=== PATIENT | female | born 2000 ===

== ENCOUNTER 2021-06-20 19:40 | Inpatient (IN) ==
[2021-06-20 20:35] LABS: Hematocrit (blood only) 35.9 % (37-47); Hemoglobin 11.9 g/dL (12.0-16.0); Mean Corpuscular Hemoglobin 27.9 pg (25-34); Mean Corpuscular Hgb Conc 33.1 g/dL (32-36); Mean Corpuscular Volume 84.1 fL (80-100); Mean Platelet Volume 10.8 fL (7.4-10.4); Platelet Count 284 K/uL (130-400); RDW Coefficient of Variation 14.7 % (11.5-14.5); Red Blood Count 4.27 M/uL (4.2-5.4); White Blood Count 5.71 K/uL (4.8-10.8)
[2021-06-20 20:38] LABS: Appearance Urine Cloudy (Clear); Bacteria Urine Automated Negative (Negative); Bilirubin Urine Negative (Negative); Blood Urine 2+ (Negative); Color Urine Dark Yellow; Epithelial Cell Urine Auto >30 /lpf (0-5); Glucose Urine UA Negative (Negative); Ketones Urine 1+ (Negative); Leukocyte Esterase Urine Negative (Negative); Nitrite Urine Negative (Negative); Protein Urine Trace (Negative); RBC Urine Automated 0-4 /hpf (0-4); Specific Gravity Urine 1.029 (1.000-1.030); Urobilinogen Urine Negative (Negative); pH Urine 5.5 (4.5-7.5)
[2021-06-20] MEDS ORDERED: SODIUM CHLORIDE 0.9% 1000ML 1,000 ML IV ONE (20:42)
[2021-06-20 20:54] LABS: Acetaminophen < 2 ug/ml (10-30); Albumin Level 3.4 gm/dl (3.4-5.0); BUN Creatinine Ratio 11.5 (10-20); Calcium 8.4 mg/dl (8.5-10.1); Creatinine Clr Calc Pharmacy 127.1 ml/min; Est GFR (African American) 137.4 ml/min; Est GFR (Non-African American) 118.6 ml/min; Potassium 3.2 mmol/L (3.5-5.1); Salicylate < 1.7 mg/dl (2.8-20)
[2021-06-20] MEDS ORDERED: LORazepam 1 MG/2 ML VIAL IV STA (20:56)
[2021-06-20 21:03] LABS: Bilirubin,Total 0.4 mg/dl (0.2-1); Globulin 3.6 gm/dl (2.5-4.0); Thyroid Stimulating Hormone 3.21 uIu/ml (0.300-4.500)
[2021-06-20 21:10] LABS: Amphetamines+Metham, Urine Neg (Neg); Barbiturates, Urine Neg (Neg); Benzodiazepine, Urine Neg (Neg); Cocaine, Urine Neg (Neg); MDMA (Ecstacy), Urine Neg (Neg); Methadone, Urine Neg (Neg); Opiate, Urine Neg (Neg); Phencyclidine, Urine Neg (Neg)
[2021-06-20 21:23] LABS: Basophils # (auto) 0.01 K/uL (0-0.2); Basophils % (auto) 0.2 %; Eosinophils # (auto) 0.19 K/uL (0-0.5); Eosinophils % (auto) 3.3 %; Immature Granulocytes # (auto) 0.01 K/uL (0.00-0.02); Immature Granulocytes % (auto) 0.2 %; Lymphocytes # (auto) 4.04 K/uL (1.2-3.4); Lymphocytes % (auto) 70.8 %; Monocytes # (auto) 0.32 K/uL (0.11-0.59); Monocytes % (auto) 5.6 %; Neutrophils # (auto) 1.14 K/uL (1.4-6.5); Neutrophils % (auto) 19.9 %; Polychromasia 1+
--- NOTE | 2021-06-20 23:39 | Emergency Department Note ---
History of Present Illness General Chief complaint: Overdose (Intentional) Stated complaint: OVERDOSE Source: patient, RN notes reviewed and friends (At the bedside) Mode of arrival: ambulatory Limitations: no limitations History of Present Illness Provider complaint: Zyprexa overdose Maximum Pain Intensity: 8 This patient is a 20-year-old female who presents to the emergency department stating that she took "20-30" tablets of 5 mg olanzapine. Patient states this was in an attempt to "." Patient's boyfriend is at the bedside and states he picked her up to go to dinner. She admitted that she took the pills after sitting down to eat. He asked her if she wanted to go to the hospital and she said no. After they ate she began to get some abdominal cramping. She left the table and he paid the bill. Patient walked out to the parking lot and apparently fell. She has been feeling somewhat agitated and restless. There has been no vomiting. History is somewhat limited as the patient is unable to answer detailed questions due to somnolence. Past Med/Surg History Medical History (Updated 06/20/21 @ 23:54 by Vera Riley MD) Mood disorder Social History (Updated 06/20/21 @ 23:47 by Vera Riley MD) Smoking Status: Current every day smoker marital status: Single current occupational status: student Feels Safe at Home: Yes Review of Systems See HPI for pertinent positives & negatives. and A total of 10 systems reviewed and were otherwise negative Physical Exam Vital Signs Vital Signs - 24 hr 06/20/21 19:44 06/20/21 20:17 06/20/21 20:31 Temperature 36.3 C L Temperature Source Temporal Artery Scan Pulse Rate 114 H 74 Pulse Rate [Right Finger] 117 H Pulse Rate from SpO2 Sensor 83 Pulse Rhythm [Right Finger] Regular Pulse Strength [Right Finger] Normal Respiratory Rate 20 20 20 Respiratory Effort / Characteristics Non-Labored Spontaneous Non-Labored Respiratory Depth Normal Normal Respiratory Pattern Regular Blood Pressure 140/101 H 145/98 H Blood Pressure [Right Arm] 145/98 H Blood Pressure Mean 114 113 Blood Pressure Mean [Right Arm] 113 Blood Pressure Position Sitting Blood Pressure Position [Right Arm] Lying Pulse Oximetry 98 98 98 Oxygen Delivery Method Room Air Room Air Room Air Sepsis Recent Fever Within 48 Hours No Sepsis New/Unexplained Change in Mental Status N/A Sepsis Action Taken by Nursing No Action Required 06/20/21 21:31 06/20/21 21:32 Temperature Temperature Source Pulse Rate 86 Pulse Rate [Right Finger] 89 Pulse Rate from SpO2 Sensor Pulse Rhythm [Right Finger] Pulse Strength [Right Finger] Respiratory Rate 20 13 Respiratory Effort / Characteristics Non-Labored Respiratory Depth Normal Respiratory Pattern Blood Pressure 127/74 Blood Pressure [Right Arm] 127/74 Blood Pressure Mean 91 Blood Pressure Mean [Right Arm] 91 Blood Pressure Position Blood Pressure Position [Right Arm] Lying Pulse Oximetry 98 Oxygen Delivery Method Room Air Room Air Sepsis Recent Fever Within 48 Hours Sepsis New/Unexplained Change in Mental Status Sepsis Action Taken by Nursing Vital signs reviewed. General: Well-appearing 20 yo female, in no significant distress. Somnolent with periodic episodes of agitation/restlessness HEENT: No scleral icterus/conjunctival injection, PERRLA, neck supple. Moist mucous membranes Cardiovascular: Tachycardic but regular, no extra sounds Pulmonary: Clear to auscultation bilaterally, normal work of breathing. Abdomen: Soft, nontender, nondistended, positive bowel sounds. Musculoskeletal: Atraumatic, no peripheral edema. Neurologic: Patient awake alert and oriented x 3 Psychiatric: Positive suicidal ideation, negative homicidal ideation Skin: Warm, dry, no rash Course Administered Medications Discontinued Medications Sodium Chloride (Nss 1000ml) 1,000 mls @ 999 mls/hr IV .[id number] ONE Stop: 06/20/21 21:42 Last Infusion: 06/20/21 23:09 Dose: 0 mls/hr Documented by: [id number] Admin: 06/20/21 20:50 Dose: 999 mls/hr Documented by: [id number] Lorazepam (Ativan) 1 mg in 2 mls @ 2 mls/min IV NOW STA Stop: 06/20/21 20:57 Last Admin: 06/20/21 21:19 Dose: 2 mls/min Documented by: [id number] Medical Decision Making Differential Diagnosis Mood disorder, infection, hypoglycemia, electrolyte abnormalities, cardiac sources, intracerebral event, toxicologic, trauma, neurologic, as well as other pathologies. Medical Records Attestation: I reviewed the patient's medical records. Home Medications Current Medication List: was personally reviewed by me Laboratory Data Attestation: I reviewed the patient's lab results. Result diagrams: 06/20/21 20:19 06/20/21 20:19 Lab Results 06/20/21 06/20/21 06/20/21 Range/Units 20:19 20:19 20:19 WBC 5.71 (4.8-10.8) K/uL RBC 4.27 (4.2-5.4) M/uL Hgb 11.9 L (12.0-16.0) g/dL Hct 35.9 L (37-47) % MCV 84.1 (80-100) fL MCH 27.9 (25-34) pg MCHC 33.1 (32-36) g/dL RDW Std Deviation 45.0 (36.4-46.3) fL RDW Coeff of Cynthia 14.7 H (11.5-14.5) % Plt Count 284 (130-400) K/uL MPV 10.8 H (7.4-10.4) fL Immature Gran % (Auto) 0.2 % Neut % (Auto) 19.9 % Lymph % (Auto) 70.8 % [place] % (Auto) 5.6 % Eos % (Auto) 3.3 % Baso % (Auto) 0.2 % Neut # (Auto) 1.14 L (1.4-6.5) K/uL Lymph # (Auto) 4.04 H (1.2-3.4) K/uL [place] # (Auto) 0.32 (0.11-0.59) K/uL Eos # (Auto) 0.19 (0-0.5) K/uL Baso # (Auto) 0.01 (0-0.2) K/uL Immature Gran # (Auto) 0.01 (0.00-0.02) K/uL Polychromasia 1+ Sodium 140 (136-145) mmol/L Potassium 3.2 L (3.5-5.1) mmol/L Chloride 108 H (98-107) mmol/L Carbon Dioxide 23 (21-32) mmol/L Anion Gap 9.0 (3-11) BUN 8 (7-18) mg/dl Creatinine 0.73 (0.6-1.2) mg/dl Est Cr Clr Drug Dosing 127.1 ml/min Est GFR ( Amer) 137.4 ml/min Est GFR (Non-Af Amer) 118.6 ml/min BUN/Creatinine Ratio 11.5 (10-20) Glucose 124 H (70-99) mg/dl Calcium 8.4 L (8.5-10.1) mg/dl Total Bilirubin 0.4 (0.2-1) mg/dl AST 23 (15-37) U/L ALT 32 (12-78) U/L Alkaline Phosphatase 50 (45-117) U/L Total Protein 7.0 (6.4-8.2) gm/dl Albumin 3.4 (3.4-5.0) gm/dl Globulin 3.6 (2.5-4.0) gm/dl Albumin/Globulin Ratio 1.0 (0.9-2) TSH 3.210 (0.300-4.500) uIu/ml Specimen Hemolysis Urine Color Urine Appearance (Clear) Urine pH (4.5-7.5) Ur Specific [place] (1.000-1.030) Urine Protein (Negative) Urine Glucose (UA) (Negative) Urine Ketones (Negative) Urine Blood (Negative) Urine Nitrite (Negative) Urine Bilirubin (Negative) Urine Urobilinogen (Negative) Ur Leukocyte Esterase (Negative) Urine WBC (Auto) (0-5) /hpf Urine RBC (Auto) (0-4) /hpf U Hyaline Cast (Auto) (0-5) /lpf U Epithel Cells (Auto) (0-5) /lpf Urine Bacteria (Auto) (Negative) POC Ur Test (NEG) Salicylates < 1.7 L (2.8-20) mg/dl Urine Opiates Screen (Neg) Ur Methadone, Qual (Neg) Acetaminophen < 2 L (10-30) ug/ml Urine Barbiturates (Neg) Ur Phencyclidine (PCP) (Neg) U Amphetamin/Meth Scrn (Neg) MDMA (Ecstasy) Screen (Neg) U Benzodiazepines Scrn (Neg) Ur Cocaine Metabolite (Neg) U Marijuana (THC) Screen (Neg) Ethyl Alcohol mg/dL (0-3) mg/dl COVID-19 Eval Order SARS-CoV-2 (PCR) (Negative) 06/20/21 06/20/21 06/20/21 Range/Units 20:19 20:30 20:30 WBC (4.8-10.8) K/uL RBC (4.2-5.4) M/uL Hgb (12.0-16.0) g/dL Hct (37-47) % MCV (80-100) fL MCH (25-34) pg MCHC (32-36) g/dL RDW Std Deviation (36.4-46.3) fL RDW Coeff of Cynthia (11.5-14.5) % Plt Count (130-400) K/uL MPV (7.4-10.4) fL Immature Gran % (Auto) % Neut % (Auto) % Lymph % (Auto) % [place] % (Auto) % Eos % (Auto) % Baso % (Auto) % Neut # (Auto) (1.4-6.5) K/uL Lymph # (Auto) (1.2-3.4) K/uL [place] # (Auto) (0.11-0.59) K/uL Eos # (Auto) (0-0.5) K/uL Baso # (Auto) (0-0.2) K/uL Immature Gran # (Auto) (0.00-0.02) K/uL Polychromasia Sodium (136-145) mmol/L Potassium (3.5-5.1) mmol/L Chloride (98-107) mmol/L Carbon Dioxide (21-32) mmol/L Anion Gap (3-11) BUN (7-18) mg/dl Creatinine (0.6-1.2) mg/dl Est Cr Clr Drug Dosing ml/min Est GFR ( Amer) ml/min Est GFR (Non-Af Amer) ml/min BUN/Creatinine Ratio (10-20) Glucose (70-99) mg/dl Calcium (8.5-10.1) mg/dl Total Bilirubin (0.2-1) mg/dl AST (15-37) U/L ALT (12-78) U/L Alkaline Phosphatase (45-117) U/L Total Protein (6.4-8.2) gm/dl Albumin (3.4-5.0) gm/dl Globulin (2.5-4.0) gm/dl Albumin/Globulin Ratio (0.9-2) TSH (0.300-4.500) uIu/ml Specimen Hemolysis Urine Color Dark Yellow Urine Appearance Cloudy A (Clear) Urine pH 5.5 (4.5-7.5) Ur Specific [place] 1.029 (1.000-1.030) Urine Protein Trace H (Negative) Urine Glucose (UA) Negative (Negative) Urine Ketones 1+ H (Negative) Urine Blood 2+ H (Negative) Urine Nitrite Negative (Negative) Urine Bilirubin Negative (Negative) Urine Urobilinogen Negative (Negative) Ur Leukocyte Esterase Negative (Negative) Urine WBC (Auto) 1-5 (0-5) /hpf Urine RBC (Auto) 0-4 (0-4) /hpf U Hyaline Cast (Auto) 10-30 H (0-5) /lpf U Epithel Cells (Auto) >30 H (0-5) /lpf Urine Bacteria (Auto) Negative (Negative) POC Ur Test (NEG) Salicylates (2.8-20) mg/dl Urine Opiates Screen Neg (Neg) Ur Methadone, Qual Neg (Neg) Acetaminophen (10-30) ug/ml Urine Barbiturates Neg (Neg) Ur Phencyclidine (PCP) Neg (Neg) U Amphetamin/Meth Scrn Neg (Neg) MDMA (Ecstasy) Screen Neg (Neg) U Benzodiazepines Scrn Neg (Neg) Ur Cocaine Metabolite Neg (Neg) U Marijuana (THC) Screen Pos H (Neg) Ethyl Alcohol mg/dL < 3.0 (0-3) mg/dl COVID-19 Eval Order SARS-CoV-2 (PCR) (Negative) 06/20/21 06/20/21 06/20/21 Range/Units 20:50 20:50 Unknown WBC (4.8-10.8) K/uL RBC (4.2-5.4) M/uL Hgb (12.0-16.0) g/dL Hct (37-47) % MCV (80-100) fL MCH (25-34) pg MCHC (32-36) g/dL RDW Std Deviation (36.4-46.3) fL RDW Coeff of Cynthia (11.5-14.5) % Plt Count (130-400) K/uL MPV (7.4-10.4) fL Immature Gran % (Auto) % Neut % (Auto) % Lymph % (Auto) % [place] % (Auto) % Eos % (Auto) % Baso % (Auto) % Neut # (Auto) (1.4-6.5) K/uL Lymph # (Auto) (1.2-3.4) K/uL [place] # (Auto) (0.11-0.59) K/uL Eos # (Auto) (0-0.5) K/uL Baso # (Auto) (0-0.2) K/uL Immature Gran # (Auto) (0.00-0.02) K/uL Polychromasia Sodium (136-145) mmol/L Potassium (3.5-5.1) mmol/L Chloride (98-107) mmol/L Carbon Dioxide (21-32) mmol/L Anion Gap (3-11) BUN (7-18) mg/dl Creatinine (0.6-1.2) mg/dl Est Cr Clr Drug Dosing ml/min Est GFR ( Amer) ml/min Est GFR (Non-Af Amer) ml/min BUN/Creatinine Ratio (10-20) Glucose (70-99) mg/dl Calcium (8.5-10.1) mg/dl Total Bilirubin (0.2-1) mg/dl AST (15-37) U/L ALT (12-78) U/L Alkaline Phosphatase (45-117) U/L Total Protein (6.4-8.2) gm/dl Albumin (3.4-5.0) gm/dl Globulin (2.5-4.0) gm/dl Albumin/Globulin Ratio (0.9-2) TSH (0.300-4.500) uIu/ml Specimen Hemolysis Urine Color Urine Appearance (Clear) Urine pH (4.5-7.5) Ur Specific [place] (1.000-1.030) Urine Protein (Negative) Urine Glucose (UA) (Negative) Urine Ketones (Negative) Urine Blood (Negative) Urine Nitrite (Negative) Urine Bilirubin (Negative) Urine Urobilinogen (Negative) Ur Leukocyte Esterase (Negative) Urine WBC (Auto) (0-5) /hpf Urine RBC (Auto) (0-4) /hpf U Hyaline Cast (Auto) (0-5) /lpf U Epithel Cells (Auto) (0-5) /lpf Urine Bacteria (Auto) (Negative) POC Ur Test NEG (NEG) Salicylates (2.8-20) mg/dl Urine Opiates Screen (Neg) Ur Methadone, Qual (Neg) Acetaminophen (10-30) ug/ml Urine Barbiturates (Neg) Ur Phencyclidine (PCP) (Neg) U Amphetamin/Meth Scrn (Neg) MDMA (Ecstasy) Screen (Neg) U Benzodiazepines Scrn (Neg) Ur Cocaine Metabolite (Neg) U Marijuana (THC) Screen (Neg) Ethyl Alcohol mg/dL (0-3) mg/dl COVID-19 Eval Order Covid19 at [facility] SARS-CoV-2 (PCR) NEGATIVE (Negative) ECG Data Attestation: I personally reviewed and interpreted this ECG as follows: Indication: + toxicologic Rate (beats per minute): 70 Rhythm: + sinus with SA ECG Intervals/blocks: + Normal QRS ECG [place]: + Normal ECG ST segments: + Nonspecific ST abnormalities ECG Findings: no PACs or no PVCs Blood Pressure Blood Pressure Findings: Normal blood pressure Blood Pressure Disposition: did not require urgent referral MDM Narrative This patient was evaluated and appeared to be in no significant distress. P atient had periodic episodes of psychomotor agitation. IV access had been obtained and the patient was hydrated with normal saline solution. An order for cardiac monitoring was placed and the patient was noted to be in a normal sinus rhythm with sinus arrhythmia at 117 bpm. Patient's heart rate did improve after 1 L of normal saline solution. Poison control was consulted. Patient was given 1 mg of IV Ativan with significant improvement. Patient's laboratory work is reassuring. U tox is positive for marijuana. It was advised that the patient be monitored for 6 hours after the ingestion to be medically cleared. The patient had no instability in her vital signs however was groggy on my reevaluation. She was resting comfortably and no longer had periods of agitation. Nursing staff stated she had been up to the bathroom ambulating on several occasions but did require some assistance. Case will be signed out to Dr. Delgadillo at the change of shift. She will be referred to the mental health director case for psychiatric assessment and inpatient mental health referral. Impression & Plan Suicide attempt, Drug overdose Discharge Plan Visit Data Chief Complaint: Overdose (Intentional) Stated Complaint: OVERDOSE Discharge Problem: Suicide attempt, Drug overdose Forms Stand Alone Forms: My [facility], Suicide Prevention Resources Referrals Referrals: PCP,NO [Primary Care Provider] -
[2021-06-21] MEDS: SODIUM CHLORIDE 0.9% 1000ML 1,000 ML IV SCH ×2 (00:03→07:41)
--- NOTE | 2021-06-21 05:37 | Emergency Department Note ---
ED Visit Note Patient signed out to me at change of shift. Patient seen and evaluated Dr. Riley medically cleared by her, please see her note for additional details. One of our ED nurses did write a 302 petitioning statement as patient admitted to intentional overdose and suicidal ideation. Patient was seen and evaluated by case management and did not feel that she needed to be admitted. 302 upheld and delegate contacted. Patient to be admitted to . No other symptoms or concerns overnight during my shift. Patient slept most of the shift, vital signs stable. . : Drug overdose Qualifiers: Encounter type: initial encounter Injury intent: intentional self-harm Qualified Code(s): T50.902A - Poisoning by unspecified drugs, medicaments and biological substances, intentional self-harm, initial encounter
[2021-06-21] MEDS ORDERED: MAGNESIUM HYDROXIDE SUSP 30 ML UDC PO PRN (12:03)
[2021-06-21] MEDS ORDERED: ACETAMINOPHEN 325 MG TAB PO PRN (12:03)
[2021-06-21] MEDS ORDERED: SODIUM CHLORIDE 0.65% NA SOLN 45 ML (OCEAN) PRN (12:03)
[2021-06-21] MEDS ORDERED: hydrOXYzine HCl 25 MG TAB PO PRN ×2 (12:03)
[2021-06-21] MEDS ORDERED: BISMUTH SUBSALICYLATE LIQD 236 ML PO PRN (12:03)
[2021-06-21] MEDS ORDERED: ALUMINUM/MAGNESIUM SUSP 30 ML UDC PO PRN (12:03)
--- NOTE | 2021-06-21 18:54 | Electrocardiogram Report ---
Test Reason : Blood Pressure : / mmHG Vent. Rate : 070 BPM Atrial Rate : 070 BPM P-R Int : 116 ms QRS Dur : 092 ms QT Int : 376 ms P-R-T Axes : 038 065 034 degrees QTc Int : 406 ms Normal sinus rhythm with sinus arrhythmia Nonspecific T wave abnormality Abnormal ECG No previous ECGs available Confirmed by Nimesh Farias ([id number]) on 06/21/2021 6:53:55 PM Referred By: REFERRED SELF Confirmed By:Devang Farias
--- NOTE | 2021-06-21 19:01 | Electrocardiogram Report ---
Test Reason : Blood Pressure : / mmHG Vent. Rate : 061 BPM Atrial Rate : 061 BPM P-R Int : 136 ms QRS Dur : 088 ms QT Int : 408 ms P-R-T Axes : 033 073 053 degrees QTc Int : 410 ms Normal sinus rhythm with sinus arrhythmia Normal ECG When compared with ECG of 20-JUN-2021 20:18, (unconfirmed) Nonspecific T wave abnormality no longer evident in Anterior leads Confirmed by Nimesh Farias ([id number]) on 06/21/2021 7:01:36 PM Referred By: REFERRED SELF Confirmed By:Devang Farias
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
[2021-06-22] MEDS: FLUoxetine HCL 10 MG CAP PO SCH (12:42)
[2021-06-22] MEDS: ARIPiprazole 5 MG TAB PO SCH (12:42)
[2021-06-22] MEDS: LORATADINE 10 MG TAB PO SCH (12:42)
[2021-06-23] MEDS: LORATADINE 10 MG TAB PO SCH (08:57)
[2021-06-23] MEDS: ARIPiprazole 5 MG TAB PO SCH (08:57)
[2021-06-23] MEDS: FLUoxetine HCL 10 MG CAP PO SCH (08:57)
--- NOTE | 2021-06-23 14:18 | Psychiatric Progress Note ---
Date of Service June 23, 2021 Impression / Recommendations Impression This is a 20-year-old female who presents to the emergency department following a suicide attempt via overdose. Patient has a reported history of bipolar disorder and had been noncompliant with her medications. She will require inpatient hospitalization for purposes of safety, stabilization, and medication management. At this time, her diagnosis of bipolar disorder is questionable as patient has never experienced a manic episode and with the exception of "mood swings" does not describe any other bipolar symptoms. It is much more likely that her mood swings are attributed to Melvin II pathology on top of a major depressive disorder. (1) Mood disorder: The patient was admitted to the [facility] ([facility] mental health unit) on every 15 minute checks (behavioral with suicide precautions for safety. The patient will participate in group, recreational, and milieu therapies and will be offered additional individual and family sessions as clinically appro priate. 06/22/2021we will restart patient's Prozac at 10 mg as she has been without it for approximately 3 weeks. We will also start the patient on Abilify as opposed to Zyprexa due to complaints of oversedation. Abilify will be good to target her impulsivity as well as being adjunct to her antidepressant treatment with Prozac. 06/23/2021we will increase patient's Prozac to 20 mg p.o. every morning. We will leave Abilify at 5 mg p.o. every morning for now. Protective Factors Assessment Employed: No Interval History Chief Complaint "I am feeling good thank you". Review of Systems Sleep Information Total Hours of Sleep: 6.5 Meal Information Percent Meal Consumed - Breakfast: 50 Percent Meal Consumed - Lunch: 100 Percent Meal Consumed - Dinner: 90 Nutrition Comment: pt. declines Subjective Subjective Patient seen, chart reviewed and case discussed with treatment team, nursing and social work. Patient reports a good night of sleep and good appetite. No side effects reported or observed. Regarding mood, patient reports some improvement which they attribute to the therapy they have received on the unit. Denies any adverse effects of the medications. Agreeable to continue with up titration of doses. I spent 30 minutes with the patient, 50% of which was dedicated to counselling and coordination of care. Physical Exam Psychiatric Orientation: alert Apperance: appropriately dressed Eye Contact: good eye contact Motor Behavior: no abnormal motor movements Speech: normal rate/rhythm/volume of speech Affect: + depressed affect, + anxious affect and + tearful affect Mood: + depressed mood and + anxious mood Thought Process: goal directed thought process Thought Content: reality based without delusions Suicidal Thoughts: denies suicidal thoughts Homicidal Thoughts: denies homicidal thoughts Hallucinations: no auditory hallucinations and no visual hallucinations Cognition: recent memory grossly intact Estimated Intelligence: average estimated intelligence Insight: + poor insight Judgement: + poor judgement Vital Signs (Past 24 Hours) Last Vital Signs Temp 36.5 C 06/23/21 06:30 Pulse 76 06/23/21 06:31 Resp 16 06/23/21 06:30 BP 113/77 06/23/21 06:31 Pulse Ox 97 06/21/21 11:52 Results & Data ([facility]) Current Inpatient Medications Current Inpatient Medications: Current Inpatient Medications Acetaminophen (Acetaminophen 325 Mg Tab) 650 mg PO Q4H PRN PRN Reason: Headache or Minor Fever Stop: 07/21/21 12:02 Al Hydrox/Mg Hydrox/Simethicone (Aluminum/Magnesium Susp 30 Ml Udc) 30 ml PO Q4H PRN PRN Reason: GI Upset Stop: 07/21/21 12:02 Aripiprazole (Aripiprazole 5 Mg Tab) 5 mg PO QAM CARRIE Stop: 07/22/21 11:59 Last Admin: 06/23/21 08:57 Dose: 5 mg Documented by: Bismuth Subsalicylate (Bismuth Subsalicylate Liqd 236 Ml) 15 ml PO PRN PRN PRN Reason: Loose Stool Stop: 07/21/21 12:02 Fluoxetine HCl (Fluoxetine Hcl 10 Mg Cap) 10 mg PO QAM CARRIE Stop: 07/22/21 11:59 Last Admin: 06/23/21 08:57 Dose: 10 mg Documented by: Hydroxyzine HCl (Hydroxyzine Hcl 25 Mg Tab) 50 mg PO HSZ PRN PRN Reason: Insomnia Stop: 07/21/21 12:02 Hydroxyzine HCl (Hydroxyzine Hcl 25 Mg Tab) 25 mg PO Q4H PRN PRN Reason: Anxiety Stop: 07/21/21 12:02 Loratadine (Loratadine 10 Mg Tab) 10 mg PO QAM CARRIE Stop: 07/22/21 11:59 Last Admin: 06/23/21 08:57 Dose: 10 mg Documented by: Magnesium Hydroxide (Magnesium Hydroxide Susp 30 Ml Udc) 30 ml PO DAILY PRN PRN Reason: Constipation Stop: 07/21/21 12:02 Sodium Chloride (Sodium Chloride 0.65% Na Soln 45 Ml ([place])) 1 - 2 sprays NA PRN PRN PRN Reason: Nasal Dryness/Congestion Stop: 07/21/21 12:02 Mental Health & Subst Abuse Tx Therapist Name of Therapist: None Slack Line Yarder Name of Slack Line Yarder: None Post Discharge Appointments Primary Care Physician Name Of Family Doctor: [facility]
[2021-06-24] MEDS: FLUoxetine HCL 20 MG CAP PO SCH (10:28)
[2021-06-24] MEDS: ARIPiprazole 5 MG TAB PO SCH (10:28)
[2021-06-24] MEDS: LORATADINE 10 MG TAB PO SCH (10:28)
--- NOTE | 2021-06-24 18:42 | Psychiatric Progress Note ---
Date of Service June 24, 2021 Impression / Recommendations Impression per Dr. Rivera: This is a 20-year-old female who presents to the emergency department following a suicide attempt via overdose. Patient has a reported history of bipolar disorder and had been noncompliant with her medications. She will require inpatient hospitalization for purposes of safety, stabilization, and medication management. At this time, her diagnosis of bipolar disorder is questionable as patient has never experienced a manic episode and with the exception of "mood swings" does not describe any other bipolar symptoms. It is much more likely that her mood swings are attributed to Boring II pathology on top of a major depressive disorder. 06/24/21--improving, working on safety plan (1) Mood disorder: 06/24/21--Risks/benefits/alternatives reviewed re: antidepressants for the treatment of depression and/or anxiety. Discussion included but was not limited to FDA warnings re: suicidality in adolescents and young adults. Risks/benefits/alternatives were reviewed re: antipsychotics for mood and/or psychosis. Discussion included but was not limited to metabolic side effects, risks of TD and suicidal thoughts. There were no abnormal motor movements at baseline. Fasting glucose and lipid panel ordered for baseline monitoring. Reviewed care of Dr. Rivera (in italics): The patient was admitted to the [facility] ([facility] mental health unit) on every 15 minute checks (behavioral with suicide precautions for safety. The patient will participate in group, recreational, and milieu therapies and will be offered additional individual and family sessions as clinically appropriate. 06/22/2021we will restart patient's Prozac at 10 mg as she has been without it for approximately 3 weeks. We will also start the patient on Abilify as opposed to Zyprexa due to complaints of oversedation. Abilify will be good to target her impulsivity as well as being adjunct to her antidepressant treatment with Prozac. 06/23/2021we will increase patient's Prozac to 20 mg p.o. every morning. We will leave Abilify at 5 mg p.o. every morning for now. Protective Factors Assessment Employed: No Interval History Identifying Information 20 yo female admit 06/21 on 302 commitment s/o Zyprexa OD. Chief Complaint "I feel so much better". Review of Systems Sleep Information Total Hours of Sleep: 6 Meal Information Percent Meal Consumed - Breakfast: 25 Percent Meal Consumed - Lunch: 100 Percent Meal Consumed - Dinner: 90 Nutrition Comment: pt ate applesauce Subjective Subjective Patient was seen & assessed and interval progress reviewed with nursing and social work. Likes Abilify as less sedating than Zyprexa and the Zyprexa has also contributed to weight gain. Reports she is engaging in groups and is agreeable to session with her male friend rather than mother as "he's local". Mother lives in [facility] and they do talk regularly on the phone. Physical Exam Psychiatric Orientation: alert Apperance: appropriately dressed Eye Contact: good eye contact Motor Behavior: no abnormal motor movements Speech: normal rate/rhythm/volume of speech Affect: euthymic affect Mood: + anxious mood Thought Process: goal directed thought process Thought Content: reality based without delusions Suicidal Thoughts: denies suicidal thoughts Homicidal Thoughts: denies homicidal thoughts Hallucinations: no auditory hallucinations and no visual hallucinations Cognition: recent memory grossly intact Estimated Intelligence: average estimated intelligence Insight: + limited insight Judgement: + limited judgement Vital Signs (Past 24 Hours) Last Vital Signs Temp 36.5 C 06/24/21 06:38 Pulse 61 06/24/21 06:39 Resp 16 06/24/21 06:38 BP 133/86 06/24/21 06:39 Pulse Ox 97 06/21/21 11:52 Results & Data ([facility]) Current Inpatient Medications Current Inpatient Medications: Current Inpatient Medications Acetaminophen (Acetaminophen 325 Mg Tab) 650 mg PO Q4H PRN PRN Reason: Headache or Minor Fever Stop: 07/21/21 12:02 Al Hydrox/Mg Hydrox/Simethicone (Aluminum/Magnesium Susp 30 Ml Udc) 30 ml PO Q4H PRN PRN Reason: GI Upset Stop: 07/21/21 12:02 Aripiprazole (Aripiprazole 5 Mg Tab) 5 mg PO QAM CARRIE Stop: 07/22/21 11:59 Last Admin: 06/24/21 10:28 Dose: 5 mg Documented by: Bismuth Subsalicylate (Bismuth Subsalicylate Liqd 236 Ml) 15 ml PO PRN PRN PRN Reason: Loose Stool Stop: 07/21/21 12:02 Fluoxetine HCl (Fluoxetine Hcl 20 Mg Cap) 20 mg PO QAM CARRIE Stop: 07/24/21 08:59 Last Admin: 06/24/21 10:28 Dose: 20 mg Documented by: Hydroxyzine HCl (Hydroxyzine Hcl 25 Mg Tab) 50 mg PO HSZ PRN PRN Reason: Insomnia Stop: 07/21/21 12:02 Hydroxyzine HCl (Hydroxyzine Hcl 25 Mg Tab) 25 mg PO Q4H PRN PRN Reason: Anxiety Stop: 07/21/21 12:02 Loratadine (Loratadine 10 Mg Tab) 10 mg PO QAM [facility]RIE Stop: 07/22/21 11:59 Last Admin: 06/24/21 10:28 Dose: 10 mg Documented by: Magnesium Hydroxide (Magnesium Hydroxide Susp 30 Ml Udc) 30 ml PO DAILY PRN PRN Reason: Constipation Stop: 07/21/21 12:02 Sodium Chloride (Sodium Chloride 0.65% Na Soln 45 Ml ([place])) 1 - 2 sprays NA PRN PRN PRN Reason: Nasal Dryness/Congestion Stop: 07/21/21 12:02 Mental Health & Subst Abuse Tx Psychiatrist Name of Psychiatrist: [facility] Psych[facility]rist's Date of Appointment with Psychiatrist: 07/04/21 Time of Appointment with Psychiatrist: 11am Psychiatric Appointment Comment: via telemedicine Therapist Name of Therapist: None Screwdown Operator Name of Screwdown Operator: None Post Discharge Appointments Primary Care Physician Name Of Family Doctor: [facility]
[2021-06-25 08:43] LABS: Glucose Fasting 94 mg/dl (70-99)
[2021-06-25 08:51] LABS: Chol HDL Ratio 8; Cholesterol 252 mg/dl (0-200); HDL Cholesterol 30 mg/dl; LDL Cholesterol Calculated 165 mg/dl; Triglycerides 286 mg/dl (0-150); VLDL Cholesterol 57 mg/dl
[2021-06-25] MEDS: LORATADINE 10 MG TAB PO SCH (09:18)
[2021-06-25] MEDS: FLUoxetine HCL 20 MG CAP PO SCH (09:18)
[2021-06-25] MEDS: ARIPiprazole 5 MG TAB PO SCH (09:18)
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
[2021-06-27 14:08] LABS: Drug Screen Comment DNR
== END 2021-06-25 13:40 | disposition home or self-care (01) | DRG 885 ==
LOC: ED 19:40 → 3S 06-21 11:52 → SUATTDRO 06-21 11:57
DX: R40.0 Somnolence; Z62.810 Personal history of physical and sexual abuse in childhood; Z79.899 Other long term (current) drug therapy; R45.1 Restlessness and agitation; Z91.128 Patient's intentional underdosing of medication regimen for other reason; Z91.5 Personal history of self-harm; F39 Unspecified mood [affective] disorder; T43.592A Poisoning by other antipsychotics and neuroleptics, intentional self-harm, initial encounter